=== PATIENT | female | born 1935 | race Caucasian/White ===

== ENCOUNTER 2016-11-05 23:26 | Inpatient (IN) | payer MEDICARE, OTHER ==
[~2016-11-05] VITALS: Ht 162.6 cm; Wt 67.5 kg
[2016-11-05] MEDS ORDERED: SODIUM CHLORIDE 0.9% 1,000 ML IV ONE ×2 (23:40→23:56)
[2016-11-05] MEDS ORDERED: PLEASE ENTER ALLERGIES MC SCH ×2 (23:45)
[2016-11-05] MEDS ORDERED: FENO135C PO (23:51)
[2016-11-05] MEDS ORDERED: SPIR25TA3 PO (23:52)
[2016-11-05] MEDS ORDERED: TRIAVIL PO (23:53)
[2016-11-05] MEDS ORDERED: GLIM2TAB2 PO (23:53)
[2016-11-05] MEDS ORDERED: GABA300C PO (23:54)
[2016-11-05] MEDS ORDERED: RELAFEN PO (23:54)
[2016-11-05] MEDS ORDERED: PROP20SO PO (23:56)
[2016-11-05] MEDS ORDERED: ASPI-650 PO (23:56)
[2016-11-05] MEDS ORDERED: NAPR220C2 PO (23:56)
[2016-11-05] MEDS ORDERED: ACET650S21 PO (23:57)
[2016-11-05] MEDS ORDERED: CHOLESTOFF PO (23:58)
[2016-11-05] MEDS ORDERED: OMEG-118 PO (23:58)
[2016-11-06] MEDS ORDERED: ALBUTEROL/IPRATROPIUM 2.5MG/0.5MG, 3 ML NPPB SCH
[2016-11-06] MEDS ORDERED: methylPREDNISolone SOD SUCC 125 MG/2 ML IVP ONE
[2016-11-06] MEDS ORDERED: POTA25TA4 PO
[2016-11-06] MEDS ORDERED: ERGO500017 PO
[2016-11-06] MEDS ORDERED: MORPHINE SULFATE 4 MG/ML, 1ML IVPush PRN
[2016-11-06] MEDS ORDERED: SODIUM CHLORIDE FLUSH 10ML SYR IVF ONE ×2
[2016-11-06] MEDS ORDERED: ALBUTEROL/IPRATROPIUM 2.5MG/0.5MG, 3 ML ONE (00:06)
[2016-11-06] MEDS ORDERED: MORPHINE SULFATE 4 MG/ML, 1ML ONE (00:30)
[2016-11-06] MEDS ORDERED: ONDANSETRON 2MG/ML, 2ML ONE ×2 (00:30→16:47)
[2016-11-06] MEDS ORDERED: methylPREDNISolone SOD SUCC 125 MG/2 ML ONE (00:30)
[2016-11-06] MEDS: ONDANSETRON 2MG/ML, 2ML IVPush ONE ×2 (00:31)
[2016-11-06 01:17] LABS: HEMATOCRIT 42.2 % (34.6-47.8); HEMOGLOBIN 14.2 g/dL (11.7-16.4); WHITE BLOOD COUNT 13.5 x10^3/uL (3.4-10)
[2016-11-06 01:22] LABS: BLOOD UREA NITROGEN 26 mg/dL (7-18)
[2016-11-06 01:27] LABS: IS PT STATUS REG ER OR PRE ER? YES
[2016-11-06] MEDS ORDERED: hydrALAzine 20 MG/ML, 1ML IVPush PRN (03:00)
[2016-11-06] MEDS ORDERED: BISACODYL 10 MG SUPP PR PRN (03:00)
[2016-11-06] MEDS ORDERED: ENALAPRILAT 1.25 MG/ML, 2ML IVPush PRN (03:00)
[2016-11-06] MEDS ORDERED: POLYETHYLENE GLYCOL 17 GM PACKET PO PRN (03:00)
[2016-11-06] MEDS ORDERED: morphine SULFATE 10 MG/ML, 1ML IVPush PRN (03:00)
[2016-11-06] MEDS ORDERED: ERGOCALCIFEROL 50,000 UNIT CAPSULE PO SCH (03:00)
[2016-11-06] MEDS ORDERED: ACETAMINOPHEN 325 MG TABLET PO PRN (03:00)
[2016-11-06] MEDS ORDERED: K-LYTE 25 MEQ TABLET.EFF PO PRN (03:00)
[2016-11-06] MEDS: SODIUM CHLORIDE 0.9% 1,000 ML IV SCH ×2 (03:54→20:31)
[2016-11-06 04:00] VITALS: BP 118/57
[2016-11-06] MEDS: NICOTINE 14MG/24 HR PATCH.TD24 TD SCH (04:00)
[2016-11-06] MEDS ORDERED: ALBUTEROL/IPRATROPIUM 2.5MG/0.5MG, 3 ML NPPB PRN ×2 (04:30)
[2016-11-06] MEDS: GABAPENTIN 300 MG CAPSULE PO SCH ×5 (05:39→22:23)
[2016-11-06 07:22] VITALS: BP 95/64
[2016-11-06] MEDS: SENNA/DOCUSATE TABLET PO SCH (08:35)
[2016-11-06] MEDS: FENOFIBRATE 145 MG TABLET PO SCH (08:35)
[2016-11-06] MEDS: OMEGA-3/FISH OIL CAPSULE PO SCH (09:00)
[2016-11-06] MEDS ORDERED: TEMPLATE NON-FORMULARY MED. (Glimepiride** 2 MG) PO SCH (09:00)
[2016-11-06] MEDS: INSULIN ASPART 100 UNITS/ML, PEN SQ-INSULIN SCH ×4 (09:00→20:26)
[2016-11-06] MEDS ORDERED: PROPRANOLOL 60 MG CAP.SA.24H PO SCH (09:00)
[2016-11-06] MEDS ORDERED: SPIRONOLACTONE 25 MG TABLET PO SCH (09:00)
[2016-11-06] MEDS: FLUTICASONE/VILANTEROL 200-25MCG/INH INH SCH (11:04)
[2016-11-06] MEDS: CEFTRIAXONE PMX 1GM/50ML 50 ML IV SCH (11:04)
[2016-11-06 13:35] VITALS: BP 111/73
[2016-11-06] MEDS ORDERED: FENTANYL PF 100 MCG/2ML ONE ×2 (16:44→17:45)
[2016-11-06] MEDS ORDERED: PROPOFOL 10 MG/ML, 20ML ONE (16:47)
[2016-11-06] MEDS ORDERED: LIDOCAINE 2%, 10ML ONE (16:47)
[2016-11-06] MEDS ORDERED: ONDANSETRON 2MG/ML, 2ML IVPush PRN (17:30)
[2016-11-06] MEDS ORDERED: OXYcodone 5 MG/5 ML ORAL.SOL UDC PO PRN (17:30)
[2016-11-06] MEDS ORDERED: LABETALOL 5MG/ML, 20ML IV PRN (17:30)
[2016-11-06] MEDS ORDERED: hydrALAzine 20 MG/ML, 1ML IV PRN (17:30)
[2016-11-06] MEDS ORDERED: HYDROmorphone 1 MG/ML, 1ML IV PRN (17:30)
[2016-11-06] MEDS ORDERED: ACETAMINOPHEN 650 MG/20.3 ML UDC ONE (17:45)
[2016-11-06] MEDS ORDERED: OXYcodone 5 MG/5 ML ORAL.SOL UDC ONE (17:45)
[2016-11-06] MEDS: FENTANYL PF 100 MCG/2ML IV PRN ×2 (17:50→18:09)
[2016-11-06] MEDS: ONDANSETRON 2MG/ML, 2ML IVPush PRN (19:34)
[2016-11-06 20:30] VITALS: BP 126/73
[2016-11-06] MEDS: ENOXAPARIN 40 MG/0.4 ML SQ SCH (21:44)
[2016-11-07 00:11] VITALS: BP 122/59
[2016-11-07 01:38] VITALS: BP 117/54
[2016-11-07] MEDS: NICOTINE 14MG/24 HR PATCH.TD24 TD SCH (03:23)
[2016-11-07] MEDS: CEFAZOLIN PMX 1GM/50ML 50 ML IV SCH ×3 (05:38→21:17)
[2016-11-07] MEDS: GABAPENTIN 300 MG CAPSULE PO SCH ×4 (06:13→21:18)
[2016-11-07 06:22] LABS: ASPARTATE AMINO TRANSFERASE 15 U/L (15-37); BLOOD UREA NITROGEN 20 mg/dL (7-18); HEMATOCRIT 31.7 % (34.6-47.8); HEMOGLOBIN 10.6 g/dL (11.7-16.4); WHITE BLOOD COUNT 8.4 x10^3/uL (3.4-10)
[2016-11-07] MEDS: INSULIN ASPART 100 UNITS/ML, PEN SQ-INSULIN SCH ×3 (07:00→21:00)
[2016-11-07] MEDS: CEFTRIAXONE PMX 1GM/50ML 50 ML IV SCH (08:09)
[2016-11-07] MEDS: SENNA/DOCUSATE TABLET PO SCH (08:10)
[2016-11-07] MEDS: PROPRANOLOL 60 MG CAP.SA.24H PO SCH (08:10)
[2016-11-07] MEDS: FENOFIBRATE 145 MG TABLET PO SCH (08:10)
[2016-11-07] MEDS: SPIRONOLACTONE 25 MG TABLET PO SCH (08:10)
[2016-11-07] MEDS: FLUTICASONE/VILANTEROL 200-25MCG/INH INH SCH (08:10)
[2016-11-07] MEDS: OMEGA-3/FISH OIL CAPSULE PO SCH (08:11)
[2016-11-07] MEDS ORDERED: ERGOCALCIFEROL 50,000 UNIT CAPSULE PO SCH (08:30)
[2016-11-07 08:38] VITALS: BP 112/51
[2016-11-07 14:00] VITALS: BP 99/61
[2016-11-07] MEDS ORDERED: morphine SULFATE 10 MG/ML, 1ML IVPush PRN (16:30)
[2016-11-07] MEDS ORDERED: ALBUTEROL/IPRATROPIUM 2.5MG/0.5MG, 3 ML NPPB PRN (16:30)
[2016-11-07] MEDS ORDERED: POLYETHYLENE GLYCOL 17 GM PACKET PO PRN (16:30)
[2016-11-07] MEDS ORDERED: ACETAMINOPHEN 325 MG TABLET PO PRN (16:30)
[2016-11-07] MEDS ORDERED: K-LYTE 25 MEQ TABLET.EFF PO PRN (16:30)
[2016-11-07] MEDS ORDERED: ENALAPRILAT 1.25 MG/ML, 2ML IVPush PRN (16:30)
[2016-11-07] MEDS ORDERED: BISACODYL 10 MG SUPP PR PRN (16:30)
[2016-11-07] MEDS ORDERED: hydrALAzine 20 MG/ML, 1ML IVPush PRN (16:30)
[2016-11-07 19:50] VITALS: BP 113/66
[2016-11-07] MEDS: ENOXAPARIN 40 MG/0.4 ML SQ SCH (21:19)
[2016-11-08 01:34] VITALS: BP 109/66
[2016-11-08] MEDS: NICOTINE 14MG/24 HR PATCH.TD24 TD SCH (02:56)
[2016-11-08] MEDS: GABAPENTIN 300 MG CAPSULE PO SCH ×4 (05:28→20:12)
[2016-11-08] MEDS: INSULIN ASPART 100 UNITS/ML, PEN SQ-INSULIN SCH ×4 (07:00→20:17)
[2016-11-08 07:47] VITALS: BP 110/59
[2016-11-08] MEDS: CEFTRIAXONE PMX 1GM/50ML 50 ML IV SCH (08:28)
[2016-11-08] MEDS: FLUTICASONE/VILANTEROL 200-25MCG/INH INH SCH (08:28)
[2016-11-08] MEDS: SPIRONOLACTONE 25 MG TABLET PO SCH (08:29)
[2016-11-08] MEDS: PROPRANOLOL 60 MG CAP.SA.24H PO SCH (08:29)
[2016-11-08] MEDS: FENOFIBRATE 145 MG TABLET PO SCH (08:29)
[2016-11-08] MEDS: OMEGA-3/FISH OIL CAPSULE PO SCH (08:29)
[2016-11-08] MEDS ORDERED: SENNA/DOCUSATE TABLET PO SCH ×2 (09:00)
[2016-11-08] MEDS: ONDANSETRON 2MG/ML, 2ML IVPush PRN (11:46)
[2016-11-08 12:35] VITALS: BP 102/62
[2016-11-08 19:11] VITALS: BP 103/63
[2016-11-08] MEDS: ENOXAPARIN 40 MG/0.4 ML SQ SCH ×2 (20:12→21:23)
[2016-11-08 21:00] VITALS: BP 106/52
[2016-11-09 01:23] VITALS: BP 109/68
[2016-11-09] MEDS: NICOTINE 14MG/24 HR PATCH.TD24 TD SCH (04:04)
[2016-11-09] MEDS: GABAPENTIN 300 MG CAPSULE PO SCH ×4 (05:48→20:31)
[2016-11-09 06:54] VITALS: BP 102/50
[2016-11-09] MEDS: INSULIN ASPART 100 UNITS/ML, PEN SQ-INSULIN SCH ×4 (07:38→20:32)
[2016-11-09] MEDS: FLUTICASONE/VILANTEROL 200-25MCG/INH INH SCH (09:13)
[2016-11-09 09:15] VITALS: BP 115/57
[2016-11-09] MEDS: PROPRANOLOL 60 MG CAP.SA.24H PO SCH (09:15)
[2016-11-09] MEDS: CEFTRIAXONE PMX 1GM/50ML 50 ML IV SCH (09:15)
[2016-11-09] MEDS: SPIRONOLACTONE 25 MG TABLET PO SCH (09:15)
[2016-11-09] MEDS: FENOFIBRATE 145 MG TABLET PO SCH (09:16)
[2016-11-09] MEDS: OMEGA-3/FISH OIL CAPSULE PO SCH (09:16)
[2016-11-09] MEDS: SENNA/DOCUSATE TABLET PO SCH (09:16)
[2016-11-09 14:10] VITALS: BP 104/52
[2016-11-09 18:55] VITALS: BP 116/51
[2016-11-09] MEDS: ENOXAPARIN 40 MG/0.4 ML SQ SCH (20:32)
[2016-11-09] MEDS ORDERED: MAGNESIUM CITRATE 300ML ORAL SOL PO ONE (21:30)
[2016-11-10 02:11] VITALS: BP 121/64
[2016-11-10] MEDS: NICOTINE 14MG/24 HR PATCH.TD24 TD SCH (03:08)
[2016-11-10] MEDS: GABAPENTIN 300 MG CAPSULE PO SCH ×4 (05:27→20:29)
[2016-11-10 07:08] VITALS: BP 109/56
[2016-11-10] MEDS: INSULIN ASPART 100 UNITS/ML, PEN SQ-INSULIN SCH ×4 (08:00→20:30)
[2016-11-10] MEDS: SPIRONOLACTONE 25 MG TABLET PO SCH (08:01)
[2016-11-10 08:25] VITALS: BP 109/51
[2016-11-10] MEDS: CEFTRIAXONE PMX 1GM/50ML 50 ML IV SCH (08:37)
[2016-11-10] MEDS: FLUTICASONE/VILANTEROL 200-25MCG/INH INH SCH (08:37)
[2016-11-10] MEDS: SENNA/DOCUSATE TABLET PO SCH (08:38)
[2016-11-10] MEDS: PROPRANOLOL 60 MG CAP.SA.24H PO SCH (08:38)
[2016-11-10] MEDS: OMEGA-3/FISH OIL CAPSULE PO SCH (08:38)
[2016-11-10] MEDS: FENOFIBRATE 145 MG TABLET PO SCH (08:38)
[2016-11-10 08:53] LABS: ABG COLLECTION SITE RIGHT RADIAL; COLLATERAL CIRCULATION TESTING NORMAL
[2016-11-10] MEDS ORDERED: FUROSEMIDE 20 MG/2 ML IV ONE (11:30)
[2016-11-10] MEDS ORDERED: ALBUTEROL/IPRATROPIUM 2.5MG/0.5MG, 3 ML ONE (11:35)
[2016-11-10 12:12] VITALS: BP 121/63
[2016-11-10 12:14] LABS: BLOOD UREA NITROGEN 10 mg/dL (7-18)
[2016-11-10 12:17] LABS: ASPARTATE AMINO TRANSFERASE 18 U/L (15-37)
[2016-11-10] MEDS: methylPREDNISolone SOD SUCC 125 MG/2 ML IVPush SCH ×3 (12:24→23:38)
[2016-11-10] MEDS: ALBUTEROL/IPRATROPIUM 2.5MG/0.5MG, 3 ML NPPB SCH ×2 (12:40→20:00)
[2016-11-10] MEDS ORDERED: OMNIPAQUE 350 MG/ML, 100ML BOTTLE ONE (15:24)
[2016-11-10] MEDS: ENOXAPARIN 40 MG/0.4 ML SQ SCH (20:29)
[2016-11-10 20:56] VITALS: BP 123/72
[2016-11-11 01:22] VITALS: BP 118/56
[2016-11-11] MEDS: NICOTINE 14MG/24 HR PATCH.TD24 TD SCH (05:42)
[2016-11-11] MEDS: GABAPENTIN 300 MG CAPSULE PO SCH ×4 (05:42→21:42)
[2016-11-11] MEDS: methylPREDNISolone SOD SUCC 125 MG/2 ML IVPush SCH ×4 (05:43→23:29)
[2016-11-11 06:14] LABS: HEMATOCRIT 33.3 % (34.6-47.8); WHITE BLOOD COUNT 9.8 x10^3/uL (3.4-10)
[2016-11-11 06:23] LABS: BLOOD UREA NITROGEN 16 mg/dL (7-18)
[2016-11-11 07:44] VITALS: BP 125/65
[2016-11-11] MEDS: ALBUTEROL/IPRATROPIUM 2.5MG/0.5MG, 3 ML NPPB SCH ×4 (07:45→20:36)
[2016-11-11] MEDS: FLUTICASONE/VILANTEROL 200-25MCG/INH INH SCH (08:31)
[2016-11-11] MEDS: CEFTRIAXONE PMX 1GM/50ML 50 ML IV SCH (08:31)
[2016-11-11] MEDS: INSULIN ASPART 100 UNITS/ML, PEN SQ-INSULIN SCH ×4 (08:31→21:47)
[2016-11-11] MEDS: SPIRONOLACTONE 25 MG TABLET PO SCH (08:32)
[2016-11-11] MEDS: OMEGA-3/FISH OIL CAPSULE PO SCH (08:32)
[2016-11-11] MEDS: PROPRANOLOL 60 MG CAP.SA.24H PO SCH (08:32)
[2016-11-11] MEDS: FENOFIBRATE 145 MG TABLET PO SCH (08:32)
[2016-11-11] MEDS: SENNA/DOCUSATE TABLET PO SCH (08:33)
[2016-11-11] MEDS ORDERED: FUROSEMIDE 20 MG/2 ML IV ONE (11:30)
[2016-11-11 14:55] VITALS: BP 134/64
[2016-11-11 18:36] VITALS: BP 132/57
[2016-11-11] MEDS: ENOXAPARIN 40 MG/0.4 ML SQ SCH (21:44)
[2016-11-12 00:24] VITALS: BP 125/66
[2016-11-12] MEDS: NICOTINE 14MG/24 HR PATCH.TD24 TD SCH (05:31)
[2016-11-12] MEDS: GABAPENTIN 300 MG CAPSULE PO SCH ×2 (05:31→11:41)
[2016-11-12] MEDS: methylPREDNISolone SOD SUCC 125 MG/2 ML IVPush SCH ×2 (05:31→11:41)
[2016-11-12 06:11] LABS: HEMATOCRIT 34.4 % (34.6-47.8); HEMOGLOBIN 11.4 g/dL (11.7-16.4); WHITE BLOOD COUNT 14.7 x10^3/uL (3.4-10)
[2016-11-12 06:13] LABS: BLOOD UREA NITROGEN 22 mg/dL (7-18)
[2016-11-12 06:32] VITALS: BP 121/64
[2016-11-12] MEDS: ALBUTEROL/IPRATROPIUM 2.5MG/0.5MG, 3 ML NPPB SCH ×3 (07:30→15:52)
[2016-11-12] MEDS: PROPRANOLOL 60 MG CAP.SA.24H PO SCH (08:24)
[2016-11-12] MEDS: CEFTRIAXONE PMX 1GM/50ML 50 ML IV SCH (08:24)
[2016-11-12] MEDS: OMEGA-3/FISH OIL CAPSULE PO SCH (08:24)
[2016-11-12] MEDS: FLUTICASONE/VILANTEROL 200-25MCG/INH INH SCH (08:24)
[2016-11-12] MEDS: SPIRONOLACTONE 25 MG TABLET PO SCH (08:24)
[2016-11-12] MEDS: FENOFIBRATE 145 MG TABLET PO SCH (08:24)
[2016-11-12] MEDS: INSULIN ASPART 100 UNITS/ML, PEN SQ-INSULIN SCH ×2 (08:25→11:47)
[2016-11-12] MEDS: SENNA/DOCUSATE TABLET PO SCH (09:00)
[2016-11-12 12:55] VITALS: BP 131/55
[2016-11-12] MEDS ORDERED: BISA10SU65 PR (16:15)
[2016-11-12] MEDS ORDERED: PRED10TA PO (16:15)
[2016-11-12] MEDS ORDERED: FLUT1BLS INH (16:15)
[2016-11-12] MEDS ORDERED: INSU100I18 SQ-INSULIN (16:15)
[2016-11-12] MEDS ORDERED: TRAM50TA2 PO (16:15)
[2016-11-12] MEDS ORDERED: ENOX40SY4 SQ (16:15)
[2016-11-12] MEDS ORDERED: IPRA3AMP NPPB (16:15)
[2016-11-12] MEDS ORDERED: NICO1PAT4 TD (16:15)
== END 2016-11-12 17:15 | DRG 480 ==
LOC: ED 23:59 → EDIP 11-06 01:47 → 4WST 11-06 03:34 → 4NOR 11-06 17:54 → 4WST 11-06 18:42
PROVIDERS: ADMIT Internal Medicine; ATTEND Internal Medicine
PROC: 0QS636Z Reposition Right Upper Femur with Intramedullary Internal Fixation Device, Percutaneous Approach (ICD-10-PCS; principal; 2016-11-06 16:30)
DX: S72.141A Displaced intertrochanteric fracture of right femur, initial encounter for closed fracture (principal); I50.31 Acute diastolic (congestive) heart failure; J96.21 Acute and chronic respiratory failure with hypoxia; J96.22 Acute and chronic respiratory failure with hypercapnia; N17.0 Acute kidney failure with tubular necrosis; J44.1 Chronic obstructive pulmonary disease with (acute) exacerbation; N39.0 Urinary tract infection, site not specified; E55.9 Vitamin D deficiency, unspecified; E78.1 Pure hyperglyceridemia; F17.200 Nicotine dependence, unspecified, uncomplicated; G25.0 Essential tremor; G89.11 Acute pain due to trauma; E11.42 Type 2 diabetes mellitus with diabetic polyneuropathy; W01.0XXA Fall on same level from slipping, tripping and stumbling without subsequent striking against object, initial encounter; I11.0 Hypertensive heart disease with heart failure; I34.0 Nonrheumatic mitral (valve) insufficiency; K59.00 Constipation, unspecified; K80.20 Calculus of gallbladder without cholecystitis without obstruction; M81.0 Age-related osteoporosis without current pathological fracture; Y93.89 Activity, other specified; Y92.89 Other specified places as the place of occurrence of the external cause; Z79.4 Long term (current) use of insulin; Z88.2 Allergy status to sulfonamides; Z88.5 Allergy status to narcotic agent; Z68.25 Body mass index [BMI] 25.0-25.9, adult; Z79.899 Other long term (current) drug therapy; Z79.82 Long term (current) use of aspirin
CPT/HCPCS: 36415; 36600; 51702; 71010; 71275; 74176; 76000; 80048; 80053; 80061; 81001; 82040; 82306; 82607; 82803; 82962; 83036; 83735; 83880; 84439; 84443; 84484; 85025; 85610; 85730; 87086; 93005; 93306; 94640; 96374; C1713; J0690; J0696; J1650; J1815; J2405; J2704; J3010; J3490; J7620; Q9967; J1940; J2930; J7030

== ENCOUNTER 2016-12-22 13:00 | Inpatient (IN) | payer MEDICARE, OTHER ==
[~2016-12-22] VITALS: Ht 165.1 cm; Wt 63.6 kg
[~2016-12-22 13:00] MED LIST: ACET650S21 PO; ASPI-650 PO; BISA10SU65 PR; CHOLESTOFF PO; ENOX40SY4 SQ; ERGO500017 PO; FENO135C PO; FLUT1BLS INH; GABA300C PO; GLIM2TAB2 PO; INSU100I18 SQ-INSULIN; IPRA3AMP NPPB; NAPR220C2 PO; NICO-486 TD; OMEG-118 PO; POTA25TA4 PO; PRED10TA PO; PROP20SO PO; RELAFEN PO; SPIR25TA3 PO; TRAM50TA2 PO; TRIAVIL PO
[2016-12-22] MEDS ORDERED: SODIUM CHLORIDE 0.9% 1,000ML IVBOLUS ONE (14:00)
[2016-12-22] MEDS ORDERED: SODIUM CHLORIDE FLUSH 10ML SYR IVF ONE (14:00)
[2016-12-22 14:01] LABS: HEMATOCRIT 32.4 % (34.6-47.8); HEMOGLOBIN 10.8 g/dL (11.7-16.4)
[2016-12-22 14:12] LABS: ASPARTATE AMINO TRANSFERASE 19 U/L (15-37); BLOOD UREA NITROGEN 18 mg/dL (7-18)
[2016-12-22] MEDS ORDERED: DILTIAZEM 5 MG/ML, 5ML ONE (14:16)
[2016-12-22 14:21] LABS: IS PT STATUS REG ER OR PRE ER? YES
[2016-12-22] MEDS ORDERED: DILTIAZEM 5 MG/ML, 5ML IVPush ONE (14:30)
[2016-12-22] MEDS ORDERED: ASPIRIN 81 MG TABLET CHEW ONE (14:40)
[2016-12-22] MEDS ORDERED: ASPIRIN 81 MG TABLET CHEW PO ONE (15:00)
[2016-12-22] MEDS ORDERED: PROCHLORPERAZINE 5 MG/ML, 2ML ONE (16:13)
[2016-12-22] MEDS ORDERED: KETOROLAC 30 MG/1 ML ONE (16:13)
[2016-12-22] MEDS ORDERED: DIPHENHYDRAMINE 50 MG/ML, 1ML ONE (16:13)
[2016-12-22] MEDS ORDERED: METHOCARBAMOL 750 MG TABLET ONE (16:13)
[2016-12-22 16:43] VITALS: BP 118/55
[2016-12-22] MEDS ORDERED: PROMETHAZINE 25 MG/ML, 1ML IM PRN (19:30)
[2016-12-22] MEDS ORDERED: POLYETHYLENE GLYCOL 17 GM PACKET PO PRN (19:30)
[2016-12-22] MEDS ORDERED: ONDANSETRON 2MG/ML, 2ML IVPush PRN (19:30)
[2016-12-22] MEDS ORDERED: DEXTROSE 4 GM TAB.CHEW PO PRN (19:30)
[2016-12-22] MEDS ORDERED: ENOXAPARIN 40 MG/0.4 ML SQ SCH (19:30)
[2016-12-22] MEDS ORDERED: FUROSEMIDE 20 MG/2 ML IV ONE (19:30)
[2016-12-22] MEDS ORDERED: BISACODYL 10 MG SUPP PR PRN (19:30)
[2016-12-22] MEDS ORDERED: DEXTROSE 50%, 50ML SYRINGE IVPush PRN (19:30)
[2016-12-22] MEDS ORDERED: GLUCAGON 1 MG IM PRN (19:30)
[2016-12-22 19:42] VITALS: BP 110/70
[2016-12-22 20:38] LABS: IS PT STATUS REG ER OR PRE ER? NO
[2016-12-22] MEDS: INSULIN ASPART 100 UNITS/ML, PEN SQ-INSULIN SCH (21:00)
[2016-12-22] MEDS: methylPREDNISolone SOD SUCC 125 MG/2 ML IVPush SCH (21:22)
[2016-12-22] MEDS: NICOTINE 7 MG/24 HR PATCH.TD24 TD SCH (21:22)
[2016-12-22] MEDS: SODIUM CHLORIDE FLUSH 10ML SYR IVF SCH (21:23)
[2016-12-22] MEDS: ENOXAPARIN 40 MG/0.4 ML SQ SCH (21:23)
[2016-12-22] MEDS: GABAPENTIN 300 MG CAPSULE PO SCH (21:23)
[2016-12-22] MEDS: FLUTICASONE/VILANTEROL 200-25MCG/INH INH SCH (22:25)
[2016-12-22] MEDS ORDERED: ALBUTEROL SULFATE 2.5 MG/3 ML ONE (22:33)
[2016-12-22] MEDS: ALBUTEROL SULFATE 2.5 MG/3 ML NPPB SCH (22:35)
[2016-12-23 00:04] VITALS: BP 113/68
[2016-12-23 01:56] LABS: IS PT STATUS REG ER OR PRE ER? NO
[2016-12-23] MEDS ORDERED: LORazepam 2 MG/ML, 1ML IVPush ONE (02:30)
[2016-12-23] MEDS: methylPREDNISolone SOD SUCC 125 MG/2 ML IVPush SCH ×3 (03:38→18:01)
[2016-12-23 06:05] LABS: HEMATOCRIT 34.4 % (34.6-47.8); HEMOGLOBIN 11.5 g/dL (11.7-16.4); WHITE BLOOD COUNT 9.9 x10^3/uL (3.4-10)
[2016-12-23 06:35] LABS: BLOOD UREA NITROGEN 13 mg/dL (7-18)
[2016-12-23 06:37] LABS: ASPARTATE AMINO TRANSFERASE 22 U/L (15-37)
[2016-12-23] MEDS: ALBUTEROL SULFATE 2.5 MG/3 ML NPPB SCH ×4 (07:25→18:25)
[2016-12-23 08:02] VITALS: BP 135/73
[2016-12-23] MEDS: SPIRONOLACTONE 25 MG TABLET PO SCH (08:35)
[2016-12-23] MEDS: SODIUM CHLORIDE FLUSH 10ML SYR IVF SCH ×2 (08:35→21:32)
[2016-12-23] MEDS: ASPIRIN 325 MG TABLET EC PO SCH (08:35)
[2016-12-23] MEDS: FENOFIBRATE 145 MG TABLET PO SCH (08:35)
[2016-12-23] MEDS: GABAPENTIN 300 MG CAPSULE PO SCH ×4 (08:35→21:31)
[2016-12-23] MEDS: INSULIN ASPART 100 UNITS/ML, PEN SQ-INSULIN SCH ×4 (09:15→21:31)
[2016-12-23 12:23] VITALS: BP 120/67
[2016-12-23] MEDS ORDERED: DILTIAZEM 125 MG in SODIUM CHLORIDE 0.9% 100 ML IV PRN (20:00)
[2016-12-23 20:08] VITALS: BP 156/69
[2016-12-23] MEDS: ENOXAPARIN 40 MG/0.4 ML SQ SCH (21:31)
[2016-12-23] MEDS: FLUTICASONE/VILANTEROL 200-25MCG/INH INH SCH (21:31)
[2016-12-23] MEDS: NICOTINE 7 MG/24 HR PATCH.TD24 TD SCH (21:32)
[2016-12-24] MEDS: methylPREDNISolone SOD SUCC 125 MG/2 ML IVPush SCH ×2 (00:21→06:28)
[2016-12-24 01:15] VITALS: BP 126/70
[2016-12-24 06:19] LABS: HEMATOCRIT 31.7 % (34.6-47.8); HEMOGLOBIN 10.6 g/dL (11.7-16.4); WHITE BLOOD COUNT 11.1 x10^3/uL (3.4-10)
[2016-12-24] MEDS: GABAPENTIN 300 MG CAPSULE PO SCH ×4 (06:28→20:29)
[2016-12-24 06:58] LABS: BLOOD UREA NITROGEN 18 mg/dL (7-18)
[2016-12-24 07:48] VITALS: BP 124/72
[2016-12-24] MEDS: ALBUTEROL SULFATE 2.5 MG/3 ML NPPB SCH ×4 (07:55→19:35)
[2016-12-24] MEDS: INSULIN ASPART 100 UNITS/ML, PEN SQ-INSULIN SCH ×4 (08:12→20:29)
[2016-12-24] MEDS: FENOFIBRATE 145 MG TABLET PO SCH (08:14)
[2016-12-24] MEDS: SPIRONOLACTONE 25 MG TABLET PO SCH (08:15)
[2016-12-24] MEDS: ASPIRIN 325 MG TABLET EC PO SCH (08:15)
[2016-12-24] MEDS: SODIUM CHLORIDE FLUSH 10ML SYR IVF SCH ×2 (08:32→20:29)
[2016-12-24] MEDS ORDERED: POTA25PA PO (10:56)
[2016-12-24] MEDS ORDERED: CHOL100011 PO (10:56)
[2016-12-24] MEDS ORDERED: PERP4TAB6 PO (10:56)
[2016-12-24] MEDS ORDERED: PRIM50TA PO (10:56)
[2016-12-24] MEDS ORDERED: FISH12002 PO (10:56)
[2016-12-24] MEDS ORDERED: DILTIAZEM 30 MG TABLET PO SCH (12:30)
[2016-12-24] MEDS ORDERED: FUROSEMIDE 40 MG/4 ML ONE (13:23)
[2016-12-24] MEDS ORDERED: NITROGLYCERIN 0.4 MG/SPRAY ONE (13:24)
[2016-12-24 14:01] LABS: IS PT STATUS REG ER OR PRE ER? NO
[2016-12-24 14:30] VITALS: BP 115/70
[2016-12-24 20:01] VITALS: BP 104/65
[2016-12-24] MEDS: ENOXAPARIN 40 MG/0.4 ML SQ SCH (20:28)
[2016-12-24] MEDS: FLUTICASONE/VILANTEROL 200-25MCG/INH INH SCH (20:28)
[2016-12-24] MEDS: methylPREDNISolone SOD SUCC 40 MG/ML IVPush SCH (20:29)
[2016-12-24] MEDS: NICOTINE 7 MG/24 HR PATCH.TD24 TD SCH (20:29)
[2016-12-24 23:06] VITALS: BP 102/63
[2016-12-25] MEDS ORDERED: FUROSEMIDE 40 MG/4 ML IV ONE (01:30)
[2016-12-25 03:00] VITALS: BP 128/63
[2016-12-25 05:50] LABS: HEMATOCRIT 31.6 % (34.6-47.8); HEMOGLOBIN 10.4 g/dL (11.7-16.4); WHITE BLOOD COUNT 19.2 x10^3/uL (3.4-10)
[2016-12-25 05:53] LABS: BLOOD UREA NITROGEN 22 mg/dL (7-18)
[2016-12-25 06:20] LABS: DIFF TOTAL CELLS COUNTED 100 CELL DIFF
[2016-12-25 06:21] LABS: VERIFY COUNTS? YES
[2016-12-25 07:45] VITALS: BP 122/69
[2016-12-25] MEDS: ALBUTEROL SULFATE 2.5 MG/3 ML NPPB SCH ×4 (07:48→20:00)
[2016-12-25] MEDS ORDERED: FUROSEMIDE 40 MG/4 ML ONE (08:55)
[2016-12-25] MEDS: INSULIN ASPART 100 UNITS/ML, PEN SQ-INSULIN SCH ×4 (09:05→21:01)
[2016-12-25] MEDS: FUROSEMIDE 40 MG/4 ML IV SCH ×2 (09:05→17:46)
[2016-12-25] MEDS: methylPREDNISolone SOD SUCC 40 MG/ML IVPush SCH ×2 (09:06→20:33)
[2016-12-25] MEDS: FENOFIBRATE 145 MG TABLET PO SCH (09:06)
[2016-12-25] MEDS: SPIRONOLACTONE 25 MG TABLET PO SCH (09:06)
[2016-12-25] MEDS: ASPIRIN 325 MG TABLET EC PO SCH (09:06)
[2016-12-25] MEDS: SODIUM CHLORIDE FLUSH 10ML SYR IVF SCH ×2 (09:06→20:33)
[2016-12-25] MEDS: GABAPENTIN 300 MG CAPSULE PO SCH ×4 (09:06→20:33)
[2016-12-25] MEDS: POTASSIUM CHLORIDE 20 MEQ TAB.ER.PRT PO SCH ×2 (09:38→17:46)
[2016-12-25] MEDS: METOPROLOL TARTRATE 25 MG TABLET PO SCH ×2 (09:38→17:46)
[2016-12-25 11:23] LABS: IS PT STATUS REG ER OR PRE ER? NO
[2016-12-25 14:00] VITALS: BP 129/72
[2016-12-25] MEDS: DOCUSATE 100 MG CAPSULE PO PRN (17:45)
[2016-12-25 19:33] VITALS: BP 116/57
[2016-12-25] MEDS: NICOTINE 7 MG/24 HR PATCH.TD24 TD SCH (20:31)
[2016-12-25] MEDS: ENOXAPARIN 40 MG/0.4 ML SQ SCH (20:32)
[2016-12-25] MEDS: FLUTICASONE/VILANTEROL 200-25MCG/INH INH SCH (20:32)
[2016-12-26 00:45] VITALS: BP 126/70
[2016-12-26] MEDS: METOPROLOL TARTRATE 25 MG TABLET PO SCH ×3 (01:49→21:30)
[2016-12-26 05:41] LABS: BLOOD UREA NITROGEN 35 mg/dL (7-18)
[2016-12-26 06:01] LABS: HEMOGLOBIN 10.9 g/dL (11.7-16.4); WHITE BLOOD COUNT 13.9 x10^3/uL (3.4-10)
[2016-12-26] MEDS: ALBUTEROL SULFATE 2.5 MG/3 ML NPPB SCH ×4 (07:00→19:44)
[2016-12-26 07:59] VITALS: BP 124/78
[2016-12-26] MEDS: DOCUSATE 100 MG CAPSULE PO PRN (08:23)
[2016-12-26] MEDS: GABAPENTIN 300 MG CAPSULE PO SCH ×4 (08:24→21:31)
[2016-12-26] MEDS: FENOFIBRATE 145 MG TABLET PO SCH (08:24)
[2016-12-26] MEDS: SPIRONOLACTONE 25 MG TABLET PO SCH (08:24)
[2016-12-26] MEDS: POTASSIUM CHLORIDE 20 MEQ TAB.ER.PRT PO SCH ×2 (08:24→17:53)
[2016-12-26] MEDS: ASPIRIN 325 MG TABLET EC PO SCH (08:24)
[2016-12-26] MEDS: FUROSEMIDE 40 MG/4 ML IV SCH ×2 (08:25→17:53)
[2016-12-26] MEDS: methylPREDNISolone SOD SUCC 40 MG/ML IVPush SCH ×2 (08:25→21:30)
[2016-12-26] MEDS: PAROXETINE 20 MG TABLET PO SCH (08:26)
[2016-12-26] MEDS: SODIUM CHLORIDE FLUSH 10ML SYR IVF SCH ×2 (08:33→21:23)
[2016-12-26] MEDS: INSULIN ASPART 100 UNITS/ML, PEN SQ-INSULIN SCH ×4 (08:33→21:52)
[2016-12-26 09:10] LABS: IS PT STATUS REG ER OR PRE ER? NO
[2016-12-26 14:30] VITALS: BP 135/69
[2016-12-26 20:19] VITALS: BP 107/64
[2016-12-26] MEDS: NICOTINE 7 MG/24 HR PATCH.TD24 TD SCH (21:22)
[2016-12-26] MEDS: FLUTICASONE/VILANTEROL 200-25MCG/INH INH SCH (21:23)
[2016-12-26] MEDS: ENOXAPARIN 40 MG/0.4 ML SQ SCH (21:23)
[2016-12-27 02:14] VITALS: BP 130/75
[2016-12-27] MEDS: ACETAMINOPHEN 325 MG TABLET PO PRN ×2 (02:19→21:47)
[2016-12-27 05:49] LABS: HEMATOCRIT 32.8 % (34.6-47.8); WHITE BLOOD COUNT 13.4 x10^3/uL (3.4-10)
[2016-12-27] MEDS: GABAPENTIN 300 MG CAPSULE PO SCH ×4 (06:00→21:49)
[2016-12-27 06:09] LABS: IS PT STATUS REG ER OR PRE ER? NO
[2016-12-27 06:19] LABS: BLOOD UREA NITROGEN 46 mg/dL (7-18)
[2016-12-27] MEDS: ALBUTEROL SULFATE 2.5 MG/3 ML NPPB SCH ×4 (06:28→18:00)
[2016-12-27 09:23] VITALS: BP 123/62
[2016-12-27] MEDS: PAROXETINE 20 MG TABLET PO SCH (09:53)
[2016-12-27] MEDS: ASPIRIN 325 MG TABLET EC PO SCH (09:53)
[2016-12-27] MEDS: FENOFIBRATE 145 MG TABLET PO SCH (09:53)
[2016-12-27] MEDS: SPIRONOLACTONE 25 MG TABLET PO SCH (09:53)
[2016-12-27] MEDS: POTASSIUM CHLORIDE 20 MEQ TAB.ER.PRT PO SCH ×2 (09:54→17:48)
[2016-12-27] MEDS: methylPREDNISolone SOD SUCC 40 MG/ML IVPush SCH ×2 (09:54→21:47)
[2016-12-27] MEDS: SODIUM CHLORIDE FLUSH 10ML SYR IVF SCH ×2 (09:54→21:47)
[2016-12-27] MEDS: FUROSEMIDE 40 MG/4 ML IV SCH ×2 (09:54→17:48)
[2016-12-27] MEDS: METOPROLOL TARTRATE 25 MG TABLET PO SCH ×2 (09:54→21:47)
[2016-12-27] MEDS: INSULIN ASPART 100 UNITS/ML, PEN SQ-INSULIN SCH ×4 (09:55→22:06)
[2016-12-27] MEDS: DOCUSATE 100 MG CAPSULE PO PRN (14:13)
[2016-12-27 14:16] VITALS: BP 115/66
[2016-12-27 21:45] VITALS: BP 106/57
[2016-12-27] MEDS: FLUTICASONE/VILANTEROL 200-25MCG/INH INH SCH (21:47)
[2016-12-27] MEDS: ENOXAPARIN 40 MG/0.4 ML SQ SCH (21:47)
[2016-12-28 00:24] VITALS: BP 103/62
[2016-12-28] MEDS: ACETAMINOPHEN 325 MG TABLET PO PRN ×3 (02:55→22:49)
[2016-12-28 05:46] LABS: HEMATOCRIT 34.9 % (34.6-47.8); HEMOGLOBIN 11.7 g/dL (11.7-16.4); WHITE BLOOD COUNT 12.2 x10^3/uL (3.4-10)
[2016-12-28 05:54] LABS: BLOOD UREA NITROGEN 43 mg/dL (7-18)
[2016-12-28] MEDS: ALBUTEROL SULFATE 2.5 MG/3 ML NPPB SCH ×4 (06:37→20:00)
[2016-12-28 07:47] VITALS: BP 119/67
[2016-12-28] MEDS: methylPREDNISolone SOD SUCC 40 MG/ML IVPush SCH ×2 (08:21→22:42)
[2016-12-28] MEDS: FUROSEMIDE 40 MG/4 ML IV SCH ×2 (08:21→17:19)
[2016-12-28] MEDS: INSULIN ASPART 100 UNITS/ML, PEN SQ-INSULIN SCH ×4 (08:21→22:59)
[2016-12-28] MEDS: SODIUM CHLORIDE FLUSH 10ML SYR IVF SCH ×2 (08:22→22:42)
[2016-12-28] MEDS: PAROXETINE 20 MG TABLET PO SCH (08:23)
[2016-12-28] MEDS: GABAPENTIN 300 MG CAPSULE PO SCH ×4 (08:24→22:41)
[2016-12-28] MEDS: FENOFIBRATE 145 MG TABLET PO SCH (08:24)
[2016-12-28] MEDS: POTASSIUM CHLORIDE 20 MEQ TAB.ER.PRT PO SCH ×2 (08:24→17:19)
[2016-12-28] MEDS: ASPIRIN 325 MG TABLET EC PO SCH (08:24)
[2016-12-28] MEDS: METOPROLOL TARTRATE 25 MG TABLET PO SCH ×2 (08:24→22:42)
[2016-12-28] MEDS: SPIRONOLACTONE 25 MG TABLET PO SCH (08:24)
[2016-12-28 15:00] VITALS: BP 115/63
[2016-12-28 19:25] VITALS: BP 121/59
[2016-12-28] MEDS: ENOXAPARIN 40 MG/0.4 ML SQ SCH (22:41)
[2016-12-28] MEDS: FLUTICASONE/VILANTEROL 200-25MCG/INH INH SCH (22:42)
[2016-12-29 02:36] VITALS: BP 138/73
[2016-12-29 05:08] LABS: HEMATOCRIT 35.7 % (34.6-47.8); WHITE BLOOD COUNT 15.7 x10^3/uL (3.4-10)
[2016-12-29 05:21] LABS: BLOOD UREA NITROGEN 38 mg/dL (7-18)
[2016-12-29] MEDS: ALBUTEROL SULFATE 2.5 MG/3 ML NPPB SCH ×4 (07:55→20:00)
[2016-12-29 08:17] VITALS: BP 117/56
[2016-12-29] MEDS: FUROSEMIDE 40 MG/4 ML IV SCH ×2 (08:42→17:34)
[2016-12-29] MEDS: INSULIN ASPART 100 UNITS/ML, PEN SQ-INSULIN SCH ×4 (08:42→20:45)
[2016-12-29] MEDS: POTASSIUM CHLORIDE 20 MEQ TAB.ER.PRT PO SCH ×2 (09:11→17:34)
[2016-12-29] MEDS: SPIRONOLACTONE 25 MG TABLET PO SCH (09:12)
[2016-12-29] MEDS: GABAPENTIN 300 MG CAPSULE PO SCH ×4 (09:12→20:44)
[2016-12-29] MEDS: PAROXETINE 20 MG TABLET PO SCH (09:12)
[2016-12-29] MEDS: methylPREDNISolone SOD SUCC 40 MG/ML IVPush SCH ×2 (09:12→20:44)
[2016-12-29] MEDS: ASPIRIN 325 MG TABLET EC PO SCH (09:12)
[2016-12-29] MEDS: METOPROLOL TARTRATE 25 MG TABLET PO SCH ×2 (09:12→20:44)
[2016-12-29] MEDS: FENOFIBRATE 145 MG TABLET PO SCH (09:12)
[2016-12-29] MEDS: SODIUM CHLORIDE FLUSH 10ML SYR IVF SCH ×2 (09:12→20:43)
[2016-12-29] MEDS: ACETAMINOPHEN 325 MG TABLET PO PRN ×2 (09:13→15:59)
[2016-12-29] MEDS ORDERED: OXYcodone IR 5MG TABLET PO PRN (16:00)
[2016-12-29 16:23] VITALS: BP 113/53
[2016-12-29 20:39] VITALS: BP 116/54
[2016-12-29] MEDS: FLUTICASONE/VILANTEROL 200-25MCG/INH INH SCH (20:43)
[2016-12-29] MEDS: ENOXAPARIN 40 MG/0.4 ML SQ SCH (20:43)
[2016-12-30 03:30] VITALS: BP 120/71
[2016-12-30] MEDS: GABAPENTIN 300 MG CAPSULE PO SCH ×2 (06:16→11:11)
[2016-12-30] MEDS: ALBUTEROL SULFATE 2.5 MG/3 ML NPPB SCH ×2 (07:14→10:43)
[2016-12-30 08:01] VITALS: BP 110/62
[2016-12-30] MEDS: METOPROLOL TARTRATE 25 MG TABLET PO SCH (08:25)
[2016-12-30] MEDS: ASPIRIN 325 MG TABLET EC PO SCH (08:25)
[2016-12-30] MEDS: SPIRONOLACTONE 25 MG TABLET PO SCH (08:25)
[2016-12-30] MEDS: POTASSIUM CHLORIDE 20 MEQ TAB.ER.PRT PO SCH (08:25)
[2016-12-30] MEDS: PAROXETINE 20 MG TABLET PO SCH (08:26)
[2016-12-30] MEDS: FUROSEMIDE 40 MG/4 ML IV SCH (08:26)
[2016-12-30] MEDS: SODIUM CHLORIDE FLUSH 10ML SYR IVF SCH (08:26)
[2016-12-30] MEDS: methylPREDNISolone SOD SUCC 40 MG/ML IVPush SCH (08:26)
[2016-12-30] MEDS: FENOFIBRATE 145 MG TABLET PO SCH (08:26)
[2016-12-30] MEDS: INSULIN ASPART 100 UNITS/ML, PEN SQ-INSULIN SCH ×2 (08:27→10:52)
[2016-12-30] MEDS ORDERED: DOCU-131 PO (11:19)
[2016-12-30] MEDS ORDERED: PARO20TA4 PO (11:19)
[2016-12-30] MEDS ORDERED: PRED5TAB PO (11:19)
[2016-12-30] MEDS ORDERED: FURO40TA6 PO (11:19)
[2016-12-30] MEDS ORDERED: ALBU2.5V NPPB (11:19)
[2016-12-30] MEDS ORDERED: METO25TA35 PO (11:19)
[2016-12-30] MEDS ORDERED: POTA20TA6 PO (11:19)
== END 2016-12-30 12:18 | disposition hospice, home (50) | DRG 280 ==
LOC: ED 15:12 → EDIP 15:14 → 5SO 16:35
PROVIDERS: ADMIT Internal Medicine; ATTEND Internal Medicine
DX: I11.0 Hypertensive heart disease with heart failure (principal); E43 Unspecified severe protein-calorie malnutrition; I21.4 Non-ST elevation (NSTEMI) myocardial infarction; J96.01 Acute respiratory failure with hypoxia; I95.9 Hypotension, unspecified; D63.8 Anemia in other chronic diseases classified elsewhere; E11.9 Type 2 diabetes mellitus without complications; I48.0 Paroxysmal atrial fibrillation; E87.1 Hypo-osmolality and hyponatremia; D75.89 Other specified diseases of blood and blood-forming organs; J44.1 Chronic obstructive pulmonary disease with (acute) exacerbation; J98.11 Atelectasis; I50.33 Acute on chronic diastolic (congestive) heart failure; Z88.6 Allergy status to analgesic agent; Z88.2 Allergy status to sulfonamides; Z68.23 Body mass index [BMI] 23.0-23.9, adult; D72.829 Elevated white blood cell count, unspecified; E78.1 Pure hyperglyceridemia; F20.9 Schizophrenia, unspecified; F32.9 Major depressive disorder, single episode, unspecified; F41.9 Anxiety disorder, unspecified; G25.0 Essential tremor; M81.0 Age-related osteoporosis without current pathological fracture; Z51.5 Encounter for palliative care; Z66 Do not resuscitate; Z87.891 Personal history of nicotine dependence
CPT/HCPCS: 36415; 71010; 74230; 80048; 80053; 81003; 82962; 83605; 83735; 83880; 84100; 84443; 84484; 85025; 87040; 93005; 93308; 93321; 93325; 94640; 96361; 96374; J1650; J1815; J1940; J2405; J7613; J2060; J2920; J2930; J7030